=== PATIENT | female | born 1975 | race Caucasian/White ===

== ENCOUNTER → 2022-03-11 10:53 | Outpatient (BNVA) | payer MEDICAID, SELFPAY | PROVIDERS: Visit Provider Family Medicine | DX: F15.11 Other stimulant abuse, in remission (principal); G47.00 Insomnia, unspecified; F41.9 Anxiety disorder, unspecified; F32.1 Major depressive disorder, single episode, moderate; Z12.4 Encounter for screening for malignant neoplasm of cervix | CPT/HCPCS: 85025 ==

== ENCOUNTER 2022-04-20 22:26 | Emergency (ER) | payer MEDICAID, SELFPAY ==
[2022-04-20 22:28] VITALS: BP 116/88; PULSE 117; RESP 20; O2SAT 95; BMI 30.2
--- NOTE | 2022-04-20 22:34 | XRR_ITS ---
PROCEDURE INFORMATION: Exam: XR Chest Exam date and time: 04/20/2022 10:40 PM Age: 46 years old Clinical indication: Other: Low BP; Additional info: SOB TECHNIQUE: Imaging protocol: Radiologic exam of the chest. Views: 1 view. COMPARISON: No relevant prior studies available. FINDINGS: Lungs: Unremarkable. No consolidation. Pleural spaces: Unremarkable. No pleural effusion. No pneumothorax. Heart/Mediastinum: Unremarkable. No cardiomegaly. Bones/joints: Unremarkable. XR/XR chest 1V portable [id number] IMPRESSION: No acute findings.
--- NOTE | 2022-04-20 22:38 | W.ED.SOB ---
HPI - SOB/Dyspnea General: Chief Complaint: Shortness of Breath/Dyspnea Stated Complaint: SOB Time Seen by Provider: 04/20/22 22:30 Source: patient and EMS Mode of arrival: EMS Limitations: no limitations History of Present Illness: HPI Narrative: 46-year-old female who states that she has had a cough congestion along with body aches over the last 4 to 5 days. States she has had multiple sick contacts with similar. States tonight her cough would worsen and she was concerned patient is in no distress here. She said no vomiting no diarrhea. Associated symptoms: Reports fever(s); Deny abdominal pain, chest pain, nausea or vomiting Review of Systems Const: Reports: fever(s), chills and body aches Eyes: Denies: blurry vision or eye discomfort ENMT: Denies: throat pain or dental pain Card: Denies: chest pain Resp: Reports: dyspnea and non-productive cough GI: Denies: abdominal pain, nausea, vomiting or diarrhea : Denies: dysuria Musc: Denies: neck pain or back pain Skin/Breast: Denies: rash Neuro: Denies: headache(s) Psych: Denies: depression Manoj/Lymph: Denies: easy bruising All/Imm: Denies: urticaria PFSH ED PFSH: Medical History Anxiety Moderate major depression Mood swings Social anxiety disorder Surgical History History of appendectomy History of bilateral breast reduction surgery History of Family History Father Cancer leukemia Diabetes Mother Hyperlipidemia Hypertension Lung disease COPD Diabetes Psychiatric illness Other Dementia Denies family history of CAD (coronary artery disease) Clotting disorder Chronic kidney disease (CKD) Anesthesia complication Bleeding disorder Stroke Social History Smoking and tobacco status: never smoked Smoking risk assessment/counseling performed?: No Alcohol intake: never Desire information about alcohol rehabilitation?: No Adopted: No Caregiver/support person: No Lives independently: Yes Household members: significant other Marital status: Single Number of children: 3 Current occupational status: unemployed History of recent travel: Yes Current gender identity: Female Special tali needs: No Female Reproductive History: Date of last menstrual period: 02/09/22 Para: 3 Physical Exam Const: COMMON NORMALS: no acute distress, patient oriented x3 and healthy appearing HENMT: COMMON NORMALS: normocephalic and atraumatic HEAD & SCALP: normocephalic and atraumatic Eye: COMMON NORMALS: Equal, round and reactive pupils present and EOMs intact bilaterally PUPIL: Yes Equal, round and reactive pupils present Neck/C-Spine: COMMON NORMALS: full ROM and supple Chest: COMMONS NORMALS: normal inspection of the chest and normal palpation of entire chest wall Resp: COMMON NORMALS: normal respiratory effort, No retractions, No use of accessory muscles and clear to auscultation bilaterally AUSCULTATION: clear to auscultation bilaterally Cardio: COMMON NORMALS: regular rate, regular rhythm and No murmurs present (Cardio) RATE: regular rate RHYTHM: regular rhythm GI: COMMON NORMALS: Normal to inspection, nondistended, normoactive bowel sounds present, Soft to palpation, non-tender and no masses PALPATION: Yes Soft to palpation Extremity: COMMON NORMALS: normal to inspection and full ROM Neuro: COMMON NORMALS: patient oriented x3, moves all extremities and no focal motor deficits Psych: COMMON NORMALS: mental status grossly normal, Normal thought process present and cooperative THOUGHT PROCESS: Normal thought process present Skin: COMMON NORMALS: no rashes or lesions noted and no wounds GENERAL SKIN EXAM: no rashes or lesions noted Course Vital Signs: Vital signs: Vital Signs Pulse Rate 99 04/21/22 00:06 Respiratory Rate 18 04/21/22 00:06 Blood Pressure 116/88 04/20/22 22:28 Pulse Oximetry 97 04/21/22 00:06 Oxygen Delivery Me thod 04/21/22 00:06 MDM - SOB/Dyspnea Medical Decision Making Patient presents with cough congestion is flu positive she is well-appearing here no distress x-ray shows no pneumonia she stable for discharge she is to follow-up PCP and return if worsening. Lab Data 04/20/22 23:11 04/20/22 23:11 Labs/Radiology: Radiology Impressions Chest X-Ray 04/20/22 22:34 IMPRESSION: No acute findings. Laboratory Results WBC 4.7 10^3/uL (4.0-10.0) 04/20/22 23:11 RBC 4.93 10^6/uL (4.1-5.3) 04/20/22 23:11 Hgb 14.6 g/dL (11.5-15.3) 04/20/22 23:11 Hct 43.6 % (37.0-47.0) 04/20/22 23:11 MCV 88.4 fl (81-99) 04/20/22 23:11 MCH 29.6 pg (28.0-34.0) 04/20/22 23:11 MCHC 33.5 g/dL (30.0-36.0) 04/20/22 23:11 RDW 12.4 % (12.1-15.1) 04/20/22 23:11 Plt Count 310 10^3/cmm (130-400) 04/20/22 23:11 MPV 10.8 fL (7.4-10.4) H 04/20/22 23:11 Neut % (Auto) 51.5 % 04/20/22 23:11 Lymph % (Auto) 34.5 % 04/20/22 23:11 [place] % (Auto) 12.2 % 04/20/22 23:11 Eos % (Auto) 0.6 % 04/20/22 23:11 Baso % (Auto) 0.6 % 04/20/22 23:11 Neut # (Auto) 2.40 10^3/uL (1.8-7.7) 04/20/22 23:11 Lymph # (Auto) 1.6 10^3/uL (0.8-4.8) 04/20/22 23:11 [place] # (Auto) 0.6 10^3/uL (0.2-0.9) 04/20/22 23:11 Eos # (Auto) 0.0 10^3/uL (0.0-0.8) 04/20/22 23:11 Baso # (Auto) 0.0 10^3/uL (0.0-0.1) 04/20/22 23:11 Nucleated RBC % (auto) 0 % 04/20/22 23:11 Nucleated RBCs # 0.0 /100WBC 04/20/22 23:11 Potassium 3.6 mmol/L (3.5-5.1) 04/20/22 23:11 Carbon Dioxide 25 mmol/L (22-29) 04/20/22 23:11 Anion Gap 17.6 (5-19) 04/20/22 23:11 Glucose 95 mg/dL (65-115) 04/20/22 23:11 Calcium 9.5 mg/dL (8.5-10.5) 04/20/22 23:11 Total Bilirubin 0.2 mg/dL (0.15-1.2) 04/20/22 23:11 Alkaline Phosphatase 86 U/L (35-105) 04/20/22 23:11 NT-Pro-B Natriuret Pep 5 pg/mL (0-125) 04/20/22 23:11 Total Protein 7.5 g/dL (6.6-8.7) 04/20/22 23:11 Albumin 4.1 g/dL (3.5-5.2) 04/20/22 23:11 Globulin 3.4 g/dL (1.3-4.6) 04/20/22 23:11 Influenza Type A Ag positive (Negative) H 04/20/22 23:42 Influenza Type B Ag negative (Negative) 04/20/22 23:42 Discharge Plan Discharge Patient Disposition: Home Clinical Impression: Influenza Condition: Stable Prescriptions: New albuterol sulfate 90 mcg/actuation HFA aerosol inhaler 2 inh INHALATION Q6H PRN (Reason: shortness of breath or wheezing) Qty: 8 0RF No Action fluoxetine [Prozac] 20 mg capsule 20 mg PO DAILY Qty: 30 0RF melatonin 10 mg capsule 10 mg PO DAILY Qty: 90 0RF benzonatate 200 mg capsule 200 mg PO BID PRN (Reason: cough) Qty: 30 0RF Discharge Orders: Discharge ED (Routine); Ordered 04/21/22 Ordered By: Fransisco Reed Referrals: Jamel Simmons MD [Primary Care Provider] - 1-3 days Discharge Diet: Advance as tolerated Discharge Activity: Resume usual activity Patient Instructions: Influenza (ED) Coding Level of Care Code ED Associate Property Manager for Chg Fwd Exam Comprehensive
[2022-04-20] MEDS: sodium chloride 0.9% 1,000 ML 999 ML IV (23:21)
[2022-04-20] MEDS: dexamethasone 10 mg/mL INJ IVP (23:22)
[2022-04-20 23:26] LABS: Basophils % 0.6 %; Eosinophils % 0.6 %; Hematocrit 43.6 % (37.0-47.0); Hemoglobin 14.6 g/dL (11.5-15.3); Lymphocytes # 1.6 10^3/uL (0.8-4.8); Lymphocytes % 34.5 %; Mean Corpuscular HGB Conc 33.5 g/dL (30.0-36.0); Mean Corpuscular Hemoglobin 29.6 pg (28.0-34.0); Mean Corpuscular Volume 88.4 fl (81-99); Mean Platelet Volume 10.8 fL (7.4-10.4); Monocytes # 0.6 10^3/uL (0.2-0.9); Monocytes % 12.2 %; Neutrophils % 51.5 %; Nucleated Red Blood Cells % 0 %; Platelet Count 310 10^3/cmm (130-400); Red Blood Count 4.93 10^6/uL (4.1-5.3); Red Cell Distribution Width 12.4 % (12.1-15.1); White Blood Count 4.7 10^3/uL (4.0-10.0)
[2022-04-21] MEDS: ipratropium-albuterol 3 mL Neb INHALATION (00:05)
[2022-04-21 00:06] VITALS: PULSE 99; RESP 18; O2SAT 97
[2022-04-21 00:08] LABS: Alanine Aminotransferase 59 U/L (0-33); Albumin Level 4.1 g/dL (3.5-5.2); Alkaline Phosphatase 86 U/L (35-105); Anion Gap 17.6 (5-19); Aspartate Amino Transferase 45 U/L (0-32); Calcium 9.5 mg/dL (8.5-10.5); Carbon Dioxide 25 mmol/L (22-29); Chloride 96 mmol/L (98-107); Globulin 3.4 g/dL (1.3-4.6); Glomerular Filtration Rate 170.4 mL/min (90-130); Glucose 95 mg/dL (65-115); NT Pro B Type Natriuretic Pept 5 pg/mL (0-125); Potassium 3.6 mmol/L (3.5-5.1); Sodium 135 mmol/L (136-145); Total Bilirubin 0.2 mg/dL (0.15-1.2); Total Protein 7.5 g/dL (6.6-8.7)
[2022-04-21 00:09] LABS: Influenza A by IFA positive (Negative); Influenza B by IFA negative (Negative)
[2022-04-21 00:17] LABS: Blood Urea Nitrogen 5 mg/dL (6-20); Osmolality Calculated 277 mOsm/kg (285-295)
[2022-04-21 00:33] LABS: SARS Covid-2 Antigen negative (Negative)
== END 2022-04-21 00:42 | disposition home or self-care (01) ==
PROVIDERS: Emergency Provider Emergency Medicine; PCP Family Medicine
DX: J11.1 Influenza due to unidentified influenza virus with other respiratory manifestations (principal); Z20.822 Contact with and (suspected) exposure to COVID-19
CPT/HCPCS: 71045; 80053; 83880; 85025; 87426; 87804; 94640; 96361; 96374; 99284; J1100; J7030

== ENCOUNTER → 2022-04-28 11:54 | Outpatient (BNVA) | payer MEDICAID, SELFPAY | PROVIDERS: PCP Family Medicine; Visit Provider Family Medicine | DX: R05.9 Cough, unspecified (principal); U07.1 COVID-19; Z23 Encounter for immunization; F41.9 Anxiety disorder, unspecified; F32.1 Major depressive disorder, single episode, moderate; K21.9 Gastro-esophageal reflux disease without esophagitis; J11.1 Influenza due to unidentified influenza virus with other respiratory manifestations; R13.10 Dysphagia, unspecified | CPT/HCPCS: 85025 ==

== ENCOUNTER 2022-08-12 09:37 | Outpatient (CLI) | payer MEDICAID, SELFPAY ==
[2022-08-12 10:49] LABS: Basophils # 0.1 10^3/uL (0.0-0.1); Basophils % 1.2 %; Eosinophils # 0.3 10^3/uL (0.0-0.8); Eosinophils % 3.7 %; Hematocrit 43.8 % (37.0-47.0); Hemoglobin 13.9 g/dL (11.5-15.3); Lymphocytes # 2.7 10^3/uL (0.8-4.8); Lymphocytes % 41.1 %; Mean Corpuscular HGB Conc 31.7 g/dL (30.0-36.0); Mean Corpuscular Hemoglobin 29.4 pg (28.0-34.0); Mean Corpuscular Volume 92.8 fl (81-99); Mean Platelet Volume 10.1 fL (7.4-10.4); Monocytes # 0.6 10^3/uL (0.2-0.9); Monocytes % 8.8 %; Neutrophils # 2.99 10^3/uL (1.8-7.7); Neutrophils % 44.9 %; Nucleated Red Blood Cells % 0 %; Platelet Count 352 10^3/cmm (130-400); Red Blood Count 4.72 10^6/uL (4.1-5.3); Red Cell Distribution Width 12.6 % (12.1-15.1); White Blood Count 6.7 10^3/uL (4.0-10.0)
[2022-08-12 11:14] LABS: Alanine Aminotransferase 92 U/L (0-33); Albumin Level 4.1 g/dL (3.5-5.2); Alkaline Phosphatase 64 U/L (35-105); Anion Gap 13.8 (5-19); Aspartate Amino Transferase 49 U/L (0-32); Blood Urea Nitrogen 9 mg/dL (6-20); Calcium 8.9 mg/dL (8.5-10.5); Carbon Dioxide 22 mmol/L (22-29); Chloride 104 mmol/L (98-107); Gamma Glutamyl Transferase 23 U/L (5-36); Globulin 3.1 g/dL (1.3-4.6); Glomerular Filtration Rate 170.4 mL/min (90-130); Glucose 89 mg/dL (65-115); Osmolality Calculated 280 mOsm/kg (285-295); Potassium 3.8 mmol/L (3.5-5.1); Sodium 136 mmol/L (136-145); Total Bilirubin 0.4 mg/dL (0.15-1.2); Total Protein 7.2 g/dL (6.6-8.7)
[2022-08-12 11:39] LABS: Hepatitis A Antibody IgM Non-Reactive (Nonreactive); Hepatitis B Core AB, Total Non-Reactive (Nonreactive); Hepatitis B Surface AB 3.5 (11.5-1000); Hepatitis B Surface Antigen Non-Reactive (Nonreactive)
[2022-08-12 12:14] LABS: Hepatitis C Virus Antibody Reactive (Nonreactive)
[2022-08-12 12:29] LABS: HIV 1 & 2 Antibody Non-Reactive (Non-Reactiv); HIV 1 & 2 Antigen Non-Reactive (Non-Reactiv)
== END 2022-08-12 09:38 | disposition home or self-care (01) ==
PROVIDERS: PCP Family Medicine; Visit Provider Family Medicine
DX: R74.8 Abnormal levels of other serum enzymes (principal); Z72.51 High risk heterosexual behavior
CPT/HCPCS: 80053; 82977; 85025; 86705; 86706; 86709; 86803; 87340; 87806

== ENCOUNTER 2022-09-06 13:23 | Outpatient (CLI) | payer MEDICAID, SELFPAY ==
[2022-09-08 21:59] LABS: HEP C RNA Viral Load Quant 4220000 IU/mL (NOT DETECTED); HEP C RNA Viral Load Quant 6.63 Log IU/mL (NOT DETECTED)
[2022-09-11 21:09] LABS: Hepatitis C Genotype RNA 1a
== END 2022-09-06 13:24 | disposition home or self-care (01) ==
LOC: LAB 13:26
PROVIDERS: PCP Family Medicine; Visit Provider Family Medicine
DX: R74.8 Abnormal levels of other serum enzymes (principal)
CPT/HCPCS: 87522; 87902

== ENCOUNTER → 2022-10-28 11:39 | Outpatient (BNVA) | payer MEDICAID, SELFPAY | PROVIDERS: PCP Family Medicine; Visit Provider Family Medicine | DX: B19.20 Unspecified viral hepatitis C without hepatic coma (principal) | CPT/HCPCS: 87522 ==